=== PATIENT | female | born 1950 | race Caucasian/White ===

== ENCOUNTER 2022-05-04 12:01 | Inpatient (IN) | payer MEDICARE, SELFPAY ==
--- NOTE | ~2022-05-04 | CT_ITS ---
EXAMINATION: CT HEAD WITHOUT CONTRAST CLINICAL INFORMATION: Altered mental status COMPARISON: None. TECHNIQUE: Contiguous axial imaging was performed from the skull base to vertex without intravenous contrast. This CT examination was performed using dose optimization techniques as appropriate, variously including the following: * Automated exposure control * Adjustment of mA and/or kV according to patient size (this includes techniques or standardized protocols for targeted exams where dose is matched to indication/reason for exam; i.e. extremities or head) Use of iterative reconstruction technique DLP: 632 mGy-cm. FINDINGS: There is no evidence of acute intracranial hemorrhage or territorial infarction. No abnormal mass effect or midline shift is seen. Espinoza to white matter differentiation is well preserved. No extra-axial fluid collections are identified. No hydrocephalus. Proportional prominence of the ventricles and sulcal spaces is consistent with mild volume loss. Patchy periventricular and deep white matter hypoattenuation is consistent with mild small vessel ischemic changes. The osseous structures and soft tissues are normal. The mastoid air cells and visualized portions of the paranasal sinuses are well aerated. CT/CT head/brain wo con IMPRESSION: No acute intracranial pathology.
[2022-05-04 12:18] VITALS: BP 146/83; PULSE 80; RESP 18; TEMP 36.2; O2SAT 95; BMI 18.2
--- NOTE | 2022-05-04 12:32 | ED.GENADULT ---
HPI - General Adult General Chief complaint: Psychiatric Symptoms <JENIFER Arellano Last Filed: 05/04/22 16:57> Stated complaint: crisis <JENIFER Arellano Last Filed: 05/04/22 16:57> Time Seen by Provider: 05/04/22 12:32 <JENIFER Arellano Last Filed: 05/04/22 16:57> Source: patient and family <JENIFER Arellano Last Filed: 05/04/22 16:57> Mode of arrival: ambulatory <JENIFER Arellano Last Filed: 05/04/22 16:57> Limitations: no limitations <JENIFER Arellano Last Filed: 05/04/22 16:57> History of Present Illness HPI narrative: Patient is a 71 year old female presenting to the emergency department today with an acute psychotic episode. Patient's family states that the patient arrived out of nowhere from [place] and has been acting very manic. Patient's family states that the patient has a history of these types of issues and has not been compliant on her medication. Patient denies any dizziness, lightheadedness, abdominal pain, nausea, vomiting, fever, chills, blurry vision, double vision, loss of vision, chest pain, difficulty breathing, shortness of breath, back pain, night sweats, pain with urination, increased urinary frequency, increased urinary urgency, blood in her urine or stool, syncope or a near syncopal episode, recent trauma or falls, bowel incontinence, bladder incontinence, bowel retention, bladder retention, or any other complaints at this time. <JENIFER Arellano Last Filed: 05/04/22 16:57> Relieving factors: none <JENIFER Arellano Last Filed: 05/04/22 16:57> Exacerbating factors: none <JENIFER Arellano Last Filed: 05/04/22 16:57> Associated symptoms: denies other symptoms <JENIFER Arellano Last Filed: 05/04/22 16:57> Treatments prior to arrival: none <JENIFER Arellano Last Filed: 05/04/22 16:57> Related Data Home medications: Home Medications Medication Instructions Recorded Confirmed No Known Home Meds 05/05/22 05/05/22 <JENIFER Arellano Last Filed: 05/04/22 16:57> Allergies/adverse reactions: Allergies Allergy/AdvReac Type Severity Reaction Status Date / Time Sulfa (Sulfonamide Allergy Unknown Verified 05/04/22 12:17 Antibiotics) <JENIFER Arellano - Last Filed: 05/04/22 16:57> Review of Systems Constitutional: Constitutional: Reports no additional constitutional complaints, Denies chills, Denies fever(s) and Denies night sweats <JENIFER Arellano Last Filed: 05/04/22 16:57> Eyes: Eyes: Reports no additional eye complaints, Denies blurry vision, Denies change in vision, Denies diplopia, Denies eye discharge, Denies loss of vision and Denies eye pain <JENIFER Arellano Last Filed: 05/04/22 16:57> ENT: Denies dizziness <JENIFER Arellano Last Filed: 05/04/22 16:57> Cardiovascular: Cardiovascular: Reports no additional cardiovascular complaints, Denies chest pain, Denies lightheadedness, Denies Loss of Consciousness and Denies dyspnea <JENIFER Arellano Last Filed: 05/04/22 16:57> Respiratory: Respiratory: Reports no additional respiratory complaints and Denies dyspnea <JENIFER Arellano Last Filed: 05/04/22 16:57> Gastrointestinal: Gastrointestinal: Reports no additional gastrointestinal complaints, Denies abdominal pain, Denies melena, Denies hematochezia, Denies change in bowel habits and Denies change in stool character <JENIFER Arellano Last Filed: 05/04/22 16:57> Genitourinary: Genitourinary: Denies hematuria, Denies urinary frequency, Denies dysuria, Denies urinary incontinence, Denies urinary hesitancy and Denies urinary urgency <JENIFER Arellano Last Filed: 05/04/22 16:57> Musculoskeletal: Musculoskeletal: Reports no additional musculoskeletal complaints, Denies numbness and Denies tingling <JENIFER Arellano Last Filed: 05/04/22 16:57> Neurologic: Reports behavioral changes, Denies dizziness, Denies loss of vision, Denies numbness and Denies tingling <JENIFER Arellano Last Filed: 05/04/22 16:57> Psychiatric: Psychiatric: Reports behavioral changes, Reports difficulty concentrating and Reports mood swings <JENIFER Arellano - Last Filed: 05/04/22 16:57> Endocrine: Endocrine: Reports no additional endocrine complaints <JENIFER Arellano - Last Filed: 05/04/22 16:57> Hematologic/Lymphatic: Hematologic/Lymphatic: Reports no additional hematologic/lymphatic complaints <JENIFER Arellano - Last Filed: 05/04/22 16:57> Allergic/Immunologic: Allergic/Immunologic: Reports no additional allergic/immunologic complaints <JENIFER Arellano - Last Filed: 05/04/22 16:57> PMF Past Medical History Attestation statement: The following information was validated with the patient. <JENIFER Arellano - Last Filed: 05/04/22 16:57> Source: old records reviewed <JENIFER Arellano - Last Filed: 05/04/22 16:57> Social History Social History: Social History Advance Directives: No Advance Directives Information Provided: No <JENIFER Arellano - Last Filed: 05/04/22 16:57> Physical Exam ED Vital Signs: Vital Signs - 24 hr 05/04/22 12:18 05/04/22 21:46 05/05/22 06:10 Temperature 97.2 F 98.4 F 97.5 F Pulse Rate 80 65 91 Respiratory Rate 18 20 16 Blood Pressure 146/83 H 191/80 H 173/108 H Pulse Oximetry 95 95 90 L Oxygen Delivery Method Room Air Room Air Room Air BMI result Body Mass Index 18.2 <JENIFER Arellano - Last Filed: 05/04/22 16:57> Vital Signs - 24 hr 05/04/22 12:18 05/04/22 21:46 05/05/22 06:10 Temperature 97.2 F 98.4 F 97.5 F Pulse Rate 80 65 91 Respiratory Rate 18 20 16 Blood Pressure 146/83 H 191/80 H 173/108 H Pulse Oximetry 95 95 90 L Oxygen Delivery Method Room Air Room Air Room Air BMI result Body Mass Index 18.2 <JENIFER Mart - Last Filed: 05/05/22 11:24> Const General: cooperative, no acute distress, alert and awake <Libia Rios PA - Last Filed: 05/04/22 16:57> Nutritional Appearance: well nourished <Libia Rios PA - Last Filed: 05/04/22 16:57> Orientation/consciousness: patient oriented x3 <Libia Rios PR - Last Filed: 05/04/22 16:57> Limitations: no limitations <Libia Rios PR - Last Filed: 05/04/22 16:57> HENMT Head: Yes normal to inspection and Yes atraumatic <Libia Rios PR - Last Filed: 05/04/22 16:57> Ears: hearing grossly normal bilaterally and external ears normal <Libia Rios PA - Last Filed: 05/04/22 16:57> General nose exam: Normal external nose present, no nasal discharge noted and no epistaxis <Libia Rios PR - Last Filed: 05/04/22 16:57> Face and sinus: Yes normal facial exam, No abrasion and No laceration <Libia Rios PR - Last Filed: 05/04/22 16:57> Mouth: Normal oral and palatal mucosa present, no drooling and no muffled voice <Libia Rios PR - Last Filed: 05/04/22 16:57> Eyes General: appearance normal, both eyes and all related structures <Libia Rios PR - Last Filed: 05/04/22 16:57> Periorbital: periorbital findings normal <Libia Rios PR - Last Filed: 05/04/22 16:57> Eyelids: Yes eyelids normal <Libia Rios PA - Last Filed: 05/04/22 16:57> Conjunctivae: conjunctivae normal <Libia Rios PA - Last Filed: 05/04/22 16:57> Pupils: Equal, round and reactive pupils present <Libia Rios PA - Last Filed: 05/04/22 16:57> EOM: EOMs intact bilaterally <Libia Rios PA - Last Filed: 05/04/22 16:57> Neck Neck: Yes normal visual inspection, Yes full ROM and Yes no lymphadenopathy <Libia Rios PA - Last Filed: 05/04/22 16:57> Chest Chest palpation & inspection: normal inspection of the chest <Libia RiosJENIFER - Last Filed: 05/04/22 16:57> Resp Effort & Inspection: normal respiratory effort and able to speak in complete sentences <Libia Rios PR - Last Filed: 05/04/22 16:57> Auscultation: clear to auscultation bilaterally <Libia Rios PR - Last Filed: 05/04/22 16:57> Cardio Rate: regular rate <Libia Rios PR - Last Filed: 05/04/22 16:57> Rhythm: regular rhythm <Libia RiosJENIFER - Last Filed: 05/04/22 16:57> GI Inspection: Yes normal to inspection <Libia RiosJENIFER - Last Filed: 05/04/22 16:57> Neuro General: patient oriented x3 and moves all extremities <Libia RiosJENIFER - Last Filed: 05/04/22 16:57> Cranial nerves: Yes Equal, round and reactive pupils present <Libia Rios PR - Last Filed: 05/04/22 16:57> Cognition (Neuro): normal cognition <Libia Rios JENIFER - Last Filed: 05/04/22 16:57> Motor exam (neuro): 5/5 motor strength present throughout <Libia Rios PR - Last Filed: 05/04/22 16:57> Sensory Exam: Normal double simultaneous stimulation for sensation <Libia RiosJENIFER - Last Filed: 05/04/22 16:57> Coordination: [id number] test normal <Libia Rios PR - Last Filed: 05/04/22 16:57> Extrem General: Yes normal to inspection, Yes full ROM and Yes capillary refill normal <Libia RiosJENIFER - Last Filed: 05/04/22 16:57> Psych Appearance: grossly normal <Libia RiosJENIFER - Last Filed: 05/04/22 16:57> Mental Status: mental status grossly normal <Libia RiosJENIFER - Last Filed: 05/04/22 16:57> Speech and movement: Pressured speech present <Libia RiosJENIFER - Last Filed: 05/04/22 16:57> Affect: normal affect <JENIFER Arellano Last Filed: 05/04/22 16:57> Attitude: cooperative <JENIFER Arellano - Last Filed: 05/04/22 16:57> Thought process: Confabulating thought process present <JENIFER Arellano Last Filed: 05/04/22 16:57> Thought content: Normal thought content present <JENIFER Arellano Last Filed: 05/04/22 16:57> Insight: Good insight present (Psych) <JENIFER Arellano - Last Filed: 05/04/22 16:57> Course Reevaluation(s) Reevaluation #1: Physician observation continues, patient is manic and from [place]. Unclear what medications patient is actually on. On my exam, patient is sleeping, she has had stable vitals, respirations even and regular, no apparent distress. Will continue to monitor. <JENIFER Mart - Last Filed: 05/05/22 11:24> Time: 11:23 <JENIFER Mart - Last Filed: 05/05/22 11:24> Medical Decision Making MDM Narrative Medical decision making narrative: Patient is a 71 year old female presenting to the emergency department today in an acute manic episode. Patient's physical exam was consistent with a person in melissa. Patient's blood work showed hyponatremia but was otherwise unremarkable. Patient's urine showed no acute process. I explained my physical exam findings as well as all test results to the patient. I answered all questions asked by the patient. Patient is awaiting N/Crisis evaluation. <JENIFER Arellano Last Filed: 05/04/22 16:57> Differential Diagnosis Differential Diagnosis: Melissa, psychosis <JENIFER Arellano Last Filed: 05/04/22 16:57> Medical Records Medical records reviewed: Yes I reviewed the patient's medical records. <JENIFER Arellano Last Filed: 05/04/22 16:57> Lab Data Lab results reviewed: Yes I reviewed the patient's lab results. <JENIFER Arellano Last Filed: 05/04/22 16:57> Result diagrams: : 05/04/22 13:34 05/04/22 22:02 <JENIFER Arellano Last Filed: 05/04/22 16:57> Labs: Lab Results 05/04/22 05/04/22 05/04/22 Range/Units 13:03 13:07 13:07 WBC (4.8-10.8) X10*3/uL RBC (4.20-5.50) X10*6/uL Hgb (12.0-16.0) g/dl Hct (37.0-47.0) % MCV (80.0-98.0) fL MCH (27.0-33.0) pg MCHC (31.0-35.0) g/dl RDW (11.0-16.0) % Plt Count (160-400) X10*3/uL MPV (9.4-12.3) fL Immature Gran % (Auto) (0.0-0.4) % Neut % (Auto) (45-73) % Lymph % (Auto) (20-40) % [place] % (Auto) (2-11) % Eos % (Auto) (0-4) % Baso % (Auto) (0-2) % Lymph # (Auto) (1.2-4.9) X10*3/uL [place] # (Auto) (0.1-1.2) X10*3/uL Eos # (Auto) (0.0-0.4) X10*3/uL Baso # (Auto) (0.0-0.2) X10*3/uL Abs Immat Gran (auto) (0.00-0.03) X10*3/uL Absolute Neuts (auto) (2.0-8.3) x10*3/uL Absolute Nucleated RBC (0.0-0.012) X10*3/uL Nucleated RBC % (auto) (0.0-0.2) /100WBC Sodium (135-145) mmol/L Potassium (3.3-5.1) mmol/L Chloride (96-108) mmol/L Carbon Dioxide (22-29) mmol/L Anion Gap (12-20) BUN (9-16) mg/dL Creatinine (0.5-1.4) mg/dL Estim Creat Clear Calc Estimated GFR Random Glucose (60-115) mg/dL Calcium (8.4-10.2) mg/dL Total Bilirubin (0.0-1.0) mg/dL AST (5-31) U/L ALT (0-31) U/L Alkaline Phosphatase (39-117) U/L Total Protein (6.5-8.0) g/dL Albumin (3.5-5.0) g/dL Urine Color YELLOW Urine Appearance CLEAR Urine pH 5.5 (5.0-8.0) Ur Specific [place] 1.015 (1.005-1.025) Urine Protein NEG (NEG-TRACE) MG/DL Urine Glucose (UA) NEG (NEG) MG/DL Urine Ketones NEG (NEG) MG/DL Urine Blood NEG (NEG) Urine Nitrite NEG (NEG) Ur Leukocyte Esterase NEG (NEG) Urine Opiates Screen Not Detected (Not Detect) Urine Fentanyl Screen Not Detected (Not Detect) Ur Barbiturates Screen Not Detected (Not Detect) Ur Phencyclidine Scrn Not Detected (Not Detect) Ur Amphetamines Screen Not Detected (Not Detect) U Benzodiazepines Scrn Not Detected (Not Detect) Urine Cocaine Screen Not Detected (Not Detect) U Marijuana (THC) Screen Not Detected (Not Detect) Ethyl Alcohol mg/dL COVID-19 (RADHA) Negative (Negative) COVID-19 Clin Com See Note 05/04/22 05/04/22 05/04/22 Range/Units 13:33 13:34 22:02 WBC 5.0 (4.8-10.8) X10*3/uL RBC 4.56 (4.20-5.50) X10*6/uL Hgb 13.8 (12.0-16.0) g/dl Hct 41.4 (37.0-47.0) % MCV 90.8 (80.0-98.0) fL MCH 30.3 (27.0-33.0) pg MCHC 33.3 (31.0-35.0) g/dl RDW 14.5 (11.0-16.0) % Plt Count 210 (160-400) X10*3/uL MPV 9.1 L (9.4-12.3) fL Immature Gran % (Auto) 0.2 (0.0-0.4) % Neut % (Auto) 54.7 (45-73) % Lymph % (Auto) 29.8 (20-40) % [place] % (Auto) 11.3 H (2-11) % Eos % (Auto) 2.8 (0-4) % Baso % (Auto) 1.2 (0-2) % Lymph # (Auto) 1.5 (1.2-4.9) X10*3/uL [place] # (Auto) 0.6 (0.1-1.2) X10*3/uL Eos # (Auto) 0.1 (0.0-0.4) X10*3/uL Baso # (Auto) 0.1 (0.0-0.2) X10*3/uL Abs Immat Gran (auto) 0.01 (0.00-0.03) X10*3/uL Absolute Neuts (auto) 2.7 (2.0-8.3) x10*3/uL Absolute Nucleated RBC 0.000 (0.0-0.012) X10*3/uL Nucleated RBC % (auto) 0.0 (0.0-0.2) /100WBC Sodium 126 L 130 L (135-145) mmol/L Potassium 4.1 4.6 (3.3-5.1) mmol/L Chloride 95 L 100 (96-108) mmol/L Carbon Dioxide 27 25 (22-29) mmol/L Anion Gap 8 L 10 L (12-20) BUN 8 L 11 (9-16) mg/dL Creatinine 0.75 1.15 (0.5-1.4) mg/dL Estim Creat Clear Calc 65.1 39.6 Estimated GFR > 60 47 Random Glucose 92 87 (60-115) mg/dL Calcium 8.6 8.4 (8.4-10.2) mg/dL Total Bilirubin 0.3 (0.0-1.0) mg/dL AST 18 (5-31) U/L ALT 9 (0-31) U/L Alkaline Phosphatase 97 (39-117) U/L Total Protein 9.0 H (6.5-8.0) g/dL Albumin 2.9 L (3.5-5.0) g/dL Urine Color Urine Appearance Urine pH (5.0-8.0) Ur Specific [place] (1.005-1.025) Urine Protein (NEG-TRACE) MG/DL Urine Glucose (UA) (NEG) MG/DL Urine Ketones (NEG) MG/DL Urine Blood (NEG) Urine Nitrite (NEG) Ur Leukocyte Esterase (NEG) Urine Opiates Screen (Not Detect) Urine Fentanyl Screen (Not Detect) Ur Barbiturates Screen (Not Detect) Ur Phencyclidine Scrn (Not Detect) Ur Amphetamines Screen (Not Detect) U Benzodiazepines Scrn (Not Detect) Urine Cocaine Screen (Not Detect) U Marijuana (THC) Screen (Not Detect) Ethyl Alcohol mg/dL COVID-19 (RADHA) (Negative) COVID-19 Clin Com 05/04/22 Range/Units 22:02 WBC (4.8-10.8) X10*3/uL RBC (4.20-5.50) X10*6/uL Hgb (12.0-16.0) g/dl Hct (37.0-47.0) % MCV (80.0-98.0) fL MCH (27.0-33.0) pg MCHC (31.0-35.0) g/dl RDW (11.0-16.0) % Plt Count (160-400) X10*3/uL MPV (9.4-12.3) fL Immature Gran % (Auto) (0.0-0.4) % Neut % (Auto) (45-73) % Lymph % (Auto) (20-40) % [place] % (Auto) (2-11) % Eos % (Auto) (0-4) % Baso % (Auto) (0-2) % Lymph # (Auto) (1.2-4.9) X10*3/uL [place] # (Auto) (0.1-1.2) X10*3/uL Eos # (Auto) (0.0-0.4) X10*3/uL Baso # (Auto) (0.0-0.2) X10*3/uL Abs Immat Gran (auto) (0.00-0.03) X10*3/uL Absolute Neuts (auto) (2.0-8.3) x10*3/uL Absolute Nucleated RBC (0.0-0.012) X10*3/uL Nucleated RBC % (auto) (0.0-0.2) /100WBC Sodium (135-145) mmol/L Potassium (3.3-5.1) mmol/L Chloride (96-108) mmol/L Carbon Dioxide (22-29) mmol/L Anion Gap (12-20) BUN (9-16) mg/dL Creatinine (0.5-1.4) mg/dL Estim Creat Clear Calc Estimated GFR Random Glucose (60-115) mg/dL Calcium (8.4-10.2) mg/dL Total Bilirubin (0.0-1.0) mg/dL AST (5-31) U/L ALT (0-31) U/L Alkaline Phosphatase (39-117) U/L Total Protein (6.5-8.0) g/dL Albumin (3.5-5.0) g/dL Urine Color Urine Appearance Urine pH (5.0-8.0) Ur Specific [place] (1.005-1.025) Urine Protein (NEG-TRACE) MG/DL Urine Glucose (UA) (NEG) MG/DL Urine Ketones (NEG) MG/DL Urine Blood (NEG) Urine Nitrite (NEG) Ur Leukocyte Esterase (NEG) Urine Opiates Screen (Not Detect) Urine Fentanyl Screen (Not Detect) Ur Barbiturates Screen (Not Detect) Ur Phencyclidine Scrn (Not Detect) Ur Amphetamines Screen (Not Detect) U Benzodiazepines Scrn (Not Detect) Urine Cocaine Screen (Not Detect) U Marijuana (THC) Screen (Not Detect) Ethyl Alcohol < 10 mg/dL COVID-19 (RADHA) (Negative) COVID-19 Clin Com <JENIFER Arellano - Last Filed: 05/04/22 16:57> Lab Results 05/04/22 05/04/22 05/04/22 Range/Units 13:03 13:07 13:07 WBC (4.8-10.8) X10*3/uL RBC (4.20-5.50) X10*6/uL Hgb (12.0-16.0) g/dl Hct (37.0-47.0) % MCV (80.0-98.0) fL MCH (27.0-33.0) pg MCHC (31.0-35.0) g/dl RDW (11.0-16.0) % Plt Count (160-400) X10*3/uL MPV (9.4-12.3) fL Immature Gran % (Auto) (0.0-0.4) % Neut % (Auto) (45-73) % Lymph % (Auto) (20-40) % [place] % (Auto) (2-11) % Eos % (Auto) (0-4) % Baso % (Auto) (0-2) % Lymph # (Auto) (1.2-4.9) X10*3/uL [place] # (Auto) (0.1-1.2) X10*3/uL Eos # (Auto) (0.0-0.4) X10*3/uL Baso # (Auto) (0.0-0.2) X10*3/uL Abs Immat Gran (auto) (0.00-0.03) X10*3/uL Absolute Neuts (auto) (2.0-8.3) x10*3/uL Absolute Nucleated RBC (0.0-0.012) X10*3/uL Nucleated RBC % (auto) (0.0-0.2) /100WBC Sodium (135-145) mmol/L Potassium (3.3-5.1) mmol/L Chloride (96-108) mmol/L Carbon Dioxide (22-29) mmol/L Anion Gap (12-20) BUN (9-16) mg/dL Creatinine (0.5-1.4) mg/dL Estim Creat Clear Calc Estimated GFR Random Glucose (60-115) mg/dL Calcium (8.4-10.2) mg/dL Total Bilirubin (0.0-1.0) mg/dL AST (5-31) U/L ALT (0-31) U/L Alkaline Phosphatase (39-117) U/L Total Protein (6.5-8.0) g/dL Albumin (3.5-5.0) g/dL Urine Color YELLOW Urine Appearance CLEAR Urine pH 5.5 (5.0-8.0) Ur Specific [place] 1.015 (1.005-1.025) Urine Protein NEG (NEG-TRACE) MG/DL Urine Glucose (UA) NEG (NEG) MG/DL Urine Ketones NEG (NEG) MG/DL Urine Blood NEG (NEG) Urine Nitrite NEG (NEG) Ur Leukocyte Esterase NEG (NEG) Urine Opiates Screen Not Detected (Not Detect) Urine Fentanyl Screen Not Detected (Not Detect) Ur Barbiturates Screen Not Detected (Not Detect) Ur Phencyclidine Scrn Not Detected (Not Detect) Ur Amphetamines Screen Not Detected (Not Detect) U Benzodiazepines Scrn Not Detected (Not Detect) Urine Cocaine Screen Not Detected (Not Detect) U Marijuana (THC) Screen Not Detected (Not Detect) Ethyl Alcohol mg/dL COVID-19 (RADHA) Negative (Negative) COVID-19 Clin Com See Note 05/04/22 05/04/22 05/04/22 Range/Units 13:33 13:34 22:02 WBC 5.0 (4.8-10.8) X10*3/uL RBC 4.56 (4.20-5.50) X10*6/uL Hgb 13.8 (12.0-16.0) g/dl Hct 41.4 (37.0-47.0) % MCV 90.8 (80.0-98.0) fL MCH 30.3 (27.0-33.0) pg MCHC 33.3 (31.0-35.0) g/dl RDW 14.5 (11.0-16.0) % Plt Count 210 (160-400) X10*3/uL MPV 9.1 L (9.4-12.3) fL Immature Gran % (Auto) 0.2 (0.0-0.4) % Neut % (Auto) 54.7 (45-73) % Lymph % (Auto) 29.8 (20-40) % [place] % (Auto) 11.3 H (2-11) % Eos % (Auto) 2.8 (0-4) % Baso % (Auto) 1.2 (0-2) % Lymph # (Auto) 1.5 (1.2-4.9) X10*3/uL [place] # (Auto) 0.6 (0.1-1.2) X10*3/uL Eos # (Auto) 0.1 (0.0-0.4) X10*3/uL Baso # (Auto) 0.1 (0.0-0.2) X10*3/uL Abs Immat Gran (auto) 0.01 (0.00-0.03) X10*3/uL Absolute Neuts (auto) 2.7 (2.0-8.3) x10*3/uL Absolute Nucleated RBC 0.000 (0.0-0.012) X10*3/uL Nucleated RBC % (auto) 0.0 (0.0-0.2) /100WBC Sodium 126 L 130 L (135-145) mmol/L Potassium 4.1 4.6 (3.3-5.1) mmol/L Chloride 95 L 100 (96-108) mmol/L Carbon Dioxide 27 25 (22-29) mmol/L Anion Gap 8 L 10 L (12-20) BUN 8 L 11 (9-16) mg/dL Creatinine 0.75 1.15 (0.5-1.4) mg/dL Estim Creat Clear Calc 65.1 39.6 Estimated GFR > 60 47 Random Glucose 92 87 (60-115) mg/dL Calcium 8.6 8.4 (8.4-10.2) mg/dL Total Bilirubin 0.3 (0.0-1.0) mg/dL AST 18 (5-31) U/L ALT 9 (0-31) U/L Alkaline Phosphatase 97 (39-117) U/L Total Protein 9.0 H (6.5-8.0) g/dL Albumin 2.9 L (3.5-5.0) g/dL Urine Color Urine Appearance Urine pH (5.0-8.0) Ur Specific [place] (1.005-1.025) Urine Protein (NEG-TRACE) MG/DL Urine Glucose (UA) (NEG) MG/DL Urine Ketones (NEG) MG/DL Urine Blood (NEG) Urine Nitrite (NEG) Ur Leukocyte Esterase (NEG) Urine Opiates Screen (Not Detect) Urine Fentanyl Screen (Not Detect) Ur Barbiturates Screen (Not Detect) Ur Phencyclidine Scrn (Not Detect) Ur Amphetamines Screen (Not Detect) U Benzodiazepines Scrn (Not Detect) Urine Cocaine Screen (Not Detect) U Marijuana (THC) Screen (Not Detect) Ethyl Alcohol mg/dL COVID-19 (RADHA) (Negative) COVID-19 Clin Com 05/04/22 Range/Units 22:02 WBC (4.8-10.8) X10*3/uL RBC (4.20-5.50) X10*6/uL Hgb (12.0-16.0) g/dl Hct (37.0-47.0) % MCV (80.0-98.0) fL MCH (27.0-33.0) pg MCHC (31.0-35.0) g/dl RDW (11.0-16.0) % Plt Count (160-400) X10*3/uL MPV (9.4-12.3) fL Immature Gran % (Auto) (0.0-0.4) % Neut % (Auto) (45-73) % Lymph % (Auto) (20-40) % [place] % (Auto) (2-11) % Eos % (Auto) (0-4) % Baso % (Auto) (0-2) % Lymph # (Auto) (1.2-4.9) X10*3/uL [place] # (Auto) (0.1-1.2) X10*3/uL Eos # (Auto) (0.0-0.4) X10*3/uL Baso # (Auto) (0.0-0.2) X10*3/uL Abs Immat Gran (auto) (0.00-0.03) X10*3/uL Absolute Neuts (auto) (2.0-8.3) x10*3/uL Absolute Nucleated RBC (0.0-0.012) X10*3/uL Nucleated RBC % (auto) (0.0-0.2) /100WBC Sodium (135-145) mmol/L Potassium (3.3-5.1) mmol/L Chloride (96-108) mmol/L Carbon Dioxide (22-29) mmol/L Anion Gap (12-20) BUN (9-16) mg/dL Creatinine (0.5-1.4) mg/dL Estim Creat Clear Calc Estimated GFR Random Glucose (60-115) mg/dL Calcium (8.4-10.2) mg/dL Total Bilirubin (0.0-1.0) mg/dL AST (5-31) U/L ALT (0-31) U/L Alkaline Phosphatase (39-117) U/L Total Protein (6.5-8.0) g/dL Albumin (3.5-5.0) g/dL Urine Color Urine Appearance Urine pH (5.0-8.0) Ur Specific [place] (1.005-1.025) Urine Protein (NEG-TRACE) MG/DL Urine Glucose (UA) (NEG) MG/DL Urine Ketones (NEG) MG/DL Urine Blood (NEG) Urine Nitrite (NEG) Ur Leukocyte Esterase (NEG) Urine Opiates Screen (Not Detect) Urine Fentanyl Screen (Not Detect) Ur Barbiturates Screen (Not Detect) Ur Phencyclidine Scrn (Not Detect) Ur Amphetamines Screen (Not Detect) U Benzodiazepines Scrn (Not Detect) Urine Cocaine Screen (Not Detect) U Marijuana (THC) Screen (Not Detect) Ethyl Alcohol < 10 mg/dL COVID-19 ([facility]) (Negative) COVID-19 Clin Com <JENIFER Mart - Last Filed: 05/05/22 11:24> Discharge Plan Discharge Clinical Impression: Psychosis, Melissa <JENIFER Arellano - Last Filed: 05/04/22 16:57> Patient Disposition: Still a Patient <JENIFER Arellano - Last Filed: 05/04/22 16:57> Prescriptions: No Action No Known Home Meds <JENIFER Arellano - Last Filed: 05/04/22 16:57> Print Language: Persian <JENIFER Arellano - Last Filed: 05/04/22 16:57>
[2022-05-04 13:38] LABS: MANUAL DIFF FLAG NO
--- NOTE | 2022-05-04 13:39 | PC.NURSE ---
brought in by family and they are concerned as pt showed up unexpectedly from [place], erratic behavior, not med compliant, agitated at times, see attached note in chart written by family, niece jackelingaviota chaney [phone] would like a call from clinician doing her eval
[2022-05-04 13:41] LABS: Basophils Absolute Auto 0.1 X10*3/uL (0.0-0.2); Basophils Percent Auto 1.2 % (0-2); Eosinophils Absolute Auto 0.1 X10*3/uL (0.0-0.4); Eosinophils Percent Auto 2.8 % (0-4); Hematocrit 41.4 % (37.0-47.0); Hemoglobin 13.8 g/dl (12.0-16.0); Imm Gran Abs Auto 0.01 X10*3/uL (0.00-0.03); Imm Gran Pct Auto 0.2 % (0.0-0.4); Lymphocytes Absolute Auto 1.5 X10*3/uL (1.2-4.9); Lymphocytes Percent Auto 29.8 % (20-40); Mean Corpuscular HGB Conc 33.3 g/dl (31.0-35.0); Mean Corpuscular Hemoglobin 30.3 pg (27.0-33.0); Mean Corpuscular Volume 90.8 fL (80.0-98.0); Mean Platelet Volume 9.1 fL (9.4-12.3); Monocytes Absolute Auto 0.6 X10*3/uL (0.1-1.2); Monocytes Percent Auto 11.3 % (2-11); Neutrophils Absolute Auto 2.7 x10*3/uL (2.0-8.3); Neutrophils Percent Auto 54.7 % (45-73); Platelet Count 210 X10*3/uL (160-400); Red Blood Count 4.56 X10*6/uL (4.20-5.50); Red Cell Distribution Width 14.5 % (11.0-16.0)
[2022-05-04 13:42] LABS: Appearance Urine CLEAR; Color Urine YELLOW; Glucose Urine UA NEG (NEG); Leukocyte Esterase Urine NEG (NEG); Nitrite Urine NEG (NEG); PH 5.5 (5.0-8.0); Specific Gravity - Urine 1.015 (1.005-1.025); Urine Blood NEG (NEG); Urine Ketones NEG (NEG); Urine Protein NEG (NEG-TRACE)
[2022-05-04 13:57] LABS: Amphetamine Screen Urine Not Detected (Not Detect); Barbiturates, Urine Not Detected (Not Detect); Benzodiazepines Screen Urine Not Detected (Not Detect); Cannabinoid Screen Urine Not Detected (Not Detect); Cocaine Screen Urine Not Detected (Not Detect); Fentanyl, urine Not Detected (Not Detect); Opiate Screen Urine Not Detected (Not Detect); Phencyclidine Screen Urine Not Detected (Not Detect)
[2022-05-04 14:04] LABS: COVID-19 Test Negative (Negative)
[2022-05-04 14:04] LABS: Alanine Aminotransferase 9 U/L (0-31); Albumin Level 2.9 g/dL (3.5-5.0); Alkaline Phosphatase 97 U/L (39-117); Anion Gap 8 (12-20); Aspartate Amino Transferase 18 U/L (5-31); Bilirubin Total 0.3 mg/dL (0.0-1.0); Blood Urea Nitrogen 8 mg/dL (9-16); Calcium 8.6 mg/dL (8.4-10.2); Carbon Dioxide 27 mmol/L (22-29); Chloride 95 mmol/L (96-108); Creatinine Clr Calc Pharmacy 65.1; Estimated Glomerular Filt Rate > 60; Glucose Random 92 mg/dL (60-115); Potassium 4.1 mmol/L (3.3-5.1); Sodium 126 mmol/L (135-145)
[2022-05-04] MEDS: Albuterol Sulfate 90 MCG 8 GM INHALER 2 PUFF INHALE ×2 (14:22→21:35)
--- NOTE | 2022-05-04 14:38 | PC.NURSE ---
c/o wheezing. slighlty coarse exp wheeze w good air movement, albuterol inhaler given w reported relief, laying in bed, nad, cooperative, awaiting n eval
--- NOTE | 2022-05-04 14:40 | PC.NURSE ---
pt now states that her birthday is 1950 but said it was 06/16/1955 previously, registration changed it
--- NOTE | 2022-05-04 17:42 | PC.NURSE ---
Please a 20 gauge Iv to the right hand. Reported to CLEO Shell
[2022-05-04] MEDS: NaPROXEN 500 MG TABLET PO (19:21)
[2022-05-04] MEDS: 0.9 % Sodium Chloride 1,000 ML 999 ML IVCONT (19:22)
--- NOTE | 2022-05-04 19:28 | PC.NURSE ---
medicated per provider order, c/o generalized arthritis pain.
[2022-05-04 21:46] VITALS: BP 191/80; PULSE 65; RESP 20; TEMP 36.9; O2SAT 95
[2022-05-04 22:20] LABS: Anion Gap 10 (12-20); Blood Urea Nitrogen 11 mg/dL (9-16); Calcium 8.4 mg/dL (8.4-10.2); Carbon Dioxide 25 mmol/L (22-29); Chloride 100 mmol/L (96-108); Creatinine Clr Calc Pharmacy 39.6; Estimated Glomerular Filt Rate 47; Ethanol < 10 mg/dL; Glucose Random 87 mg/dL (60-115); Potassium 4.6 mmol/L (3.3-5.1); Sodium 130 mmol/L (135-145)
[2022-05-04] MEDS: LORazepam 1 MG TABLET PO (22:24)
--- NOTE | 2022-05-05 | ECG_ITS ---
Test Reason : medical clearance Blood Pressure : / mmHG Vent. Rate : 074 BPM Atrial Rate : 074 BPM P-R Int : 152 ms QRS Dur : 096 ms QT Int : 408 ms P-R-T Axes : 071 -40 057 degrees QTc Int : 452 ms Normal sinus rhythm Left axis deviation Minimal voltage criteria for LVH, may be normal variant ( Cuney product ) Abnormal ECG No previous ECGs available Referred By: Mami Peterson Electronically Signed By:NEISHA GALLO MD
[2022-05-05 06:10] VITALS: BP 173/108; PULSE 91; RESP 16; TEMP 36.4; O2SAT 90
--- NOTE | 2022-05-05 07:01 | PC.NURSE ---
Patient slept through the night, no distress observed/reported, behavior non concerning, Ativan 1 mg administered with good effect, [facility] referral completed/confirmed/pending ETA, patient is currently not on any maintenance medication, will continue to monitor
--- NOTE | 2022-05-05 10:07 | PC.NURSE ---
PT SLEEPING. BEDSEARCH CONTINUES.
--- NOTE | 2022-05-05 11:31 | PC.NURSE ---
NIECE IN TO SEE PT
--- NOTE | 2022-05-05 16:35 | PC.NURSE ---
RN-RN report given to M5.
--- NOTE | 2022-05-05 19:06 | PC.NURSE ---
Gigi King (brother): spoke to w pt permission, updated on pt current status, plan to transfer to .
[2022-05-05 19:30] VITALS: BP 185/79; PULSE 90; TEMP 35.9
--- NOTE | 2022-05-05 20:43 | HO.PSYADMNOT ---
HPI Date of Service: 05/05/22 Chief Complaint: psychosis Sources of Information: patient interviewed, chart reviewed and crisis/core team assessment reviewed HPI Subjective Notes: Hassan Warning and Conditional Voluntary Healthcare Proxy: No Guardianship: No Medical Problems Affecting Mental Status: No Narrative: Mirlande is a 71 y.o. female who carries a dx of Bipolar I disorder. She presented to [facility] on 05/04/22 due to family bringing her in for concern of manic episode. Pt's family reports that she arrived unannounced on 05/03/22 from [place] and has been ?acting very manic.? There is a question of med-adherence. Per [facility] crisis eval, pt reported she is in the hospital because her family is against her and endorsed paranoid ideation of being followed due to hiding a special victim in her house. [facility] clinician spoke with pt?s niece who reported that pt arrived to her home unannounced, appeared to have lost a significant amt of weight, disheveled, and disorganized. Recent psychiatric inpatient admission in 10/2021, however family report she did not follow up with OP referrals and is med non-adherent. Pt resides in [place] with her son and pt?s niece spoke with her son, who reported that she is ?spending long hours just yelling,? recently disappeared and was found laying in a ditch.? In the ED, pt?s utox negative for illicit substances, no alcohol abuse. Na level low, 126 but improved to 130 with fluids. U/A negative.? I evaluated the pt this evening and upon interview she reports she is in the hospital because her ?family is very concerned.? Pt says she came in by plane from [place] and ?nobody got any of my texts.? She acknowledges that ?nobody knew I was coming? and says she ?shocked everyone, they werent expecting me.? Pt says her family was concerned about her because ?im too skinny? and ?I have a psychiatric history and chinmay been suffering with depression since age 17.? Pt reports she is on Risperdal 1 mg and claims she has been adherent with it but ?taking it at different times.? When discussing her crisis eval reporting that she has been non-adherent with her medication and manic, pt states ?that?s just bullshit? and says her ?brother in [place] interpreted my chart to say I do not take my meds which is wrong.? Says she has been taking risperdal 20 years. Pt reports her family thinks she is manic because ?they upset me, I got mad.? Says she was mad at her niece?s house because ?nothing is done with respect? and it was ?dimly lit.? Pt says she has not been sleeping since arriving from [place] and attributes this to the time difference and travel. Says when she arrived at [facility], she thought she was accompanying her niece at her cardiac rehab appt and did not know she would be psychiatrically evaluated. Denies SI/SIB. Denies A/VH. Says she feels safe here. Denies substance use or alcohol use, last drink was at [place]. Denies issues with appetite but says she has not been eating or hydrating much since arriving from [place].? Past Psychiatric History: -Per crisis eval, pt has a hx of multiple psych admissions. Hx of lack of follow up with services and med non-adherence. -Pt says she has OP med management in [place], sees a human resources psychologist, no therapy. Medical Evaluation Reviewed: Yes [facility] Narrative: -Self reports Sjogren?s syndrome Social History: -Pt lives in [place] with her son and a ? couple.? 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 -Pt grew up in a family Diagnostics Vital Signs (24Hr): Vital Signs - 24 hr 05/04/22 21:46 05/05/22 06:10 Temperature 98.4 F 97.5 F Pulse Rate 65 91 Respiratory Rate 20 16 Blood Pressure 191/80 H 173/108 H Pulse Oximetry 95 90 L Oxygen Delivery Method Room Air Room Air BMI result Body Mass Index 18.2 Labs Results: 05/04/22 13:34 05/04/22 22:02 Labs: Laboratory Results - last 48 hr 05/04/22 05/04/22 05/04/22 13:03 13:07 13:07 WBC RBC Hgb Hct MCV MCH MCHC RDW Plt Count MPV Immature Gran % (Auto) Neut % (Auto) Lymph % (Auto) Foster % (Auto) Eos % (Auto) Baso % (Auto) Lymph # (Auto) Foster # (Auto) Eos # (Auto) Baso # (Auto) Abs Immat Gran (auto) Absolute Neuts (auto) Absolute Nucleated RBC Nucleated RBC % (auto) Sodium Potassium Chloride Carbon Dioxide Anion Gap BUN Creatinine Estim Creat Clear Calc Estimated GFR Random Glucose Calcium Total Bilirubin AST ALT Alkaline Phosphatase Total Protein Albumin Urine Color YELLOW Urine Appearance CLEAR Urine pH 5.5 Ur Specific Camargo 1.015 Urine Protein NEG Urine Glucose (UA) NEG Urine Ketones NEG Urine Blood NEG Urine Nitrite NEG Ur Leukocyte Esterase NEG Urine Opiates Screen Not Detected Urine Fentanyl Screen Not Detected Ur Barbiturates Screen Not Detected Ur Phencyclidine Scrn Not Detected Ur Amphetamines Screen Not Detected U Benzodiazepines Scrn Not Detected Urine Cocaine Screen Not Detected U Marijuana (THC) Screen Not Detected Ethyl Alcohol COVID-19 (RADHA) Negative COVID-19 Clin Com See Note 05/04/22 05/04/22 05/04/22 13:33 13:34 22:02 WBC 5.0 RBC 4.56 Hgb 13.8 Hct 41.4 MCV 90.8 MCH 30.3 MCHC 33.3 RDW 14.5 Plt Count 210 MPV 9.1 L Immature Gran % (Auto) 0.2 Neut % (Auto) 54.7 Lymph % (Auto) 29.8 Foster % (Auto) 11.3 H Eos % (Auto) 2.8 Baso % (Auto) 1.2 Lymph # (Auto) 1.5 Foster # (Auto) 0.6 Eos # (Auto) 0.1 Baso # (Auto) 0.1 Abs Immat Gran (auto) 0.01 Absolute Neuts (auto) 2.7 Absolute Nucleated RBC 0.000 Nucleated RBC % (auto) 0.0 Sodium 126 L 130 L Potassium 4.1 4.6 Chloride 95 L 100 Carbon Dioxide 27 25 Anion Gap 8 L 10 L BUN 8 L 11 Creatinine 0.75 1.15 Estim Creat Clear Calc 65.1 39.6 Estimated GFR > 60 47 Random Glucose 92 87 Calcium 8.6 8.4 Total Bilirubin 0.3 AST 18 ALT 9 Alkaline Phosphatase 97 Total Protein 9.0 H Albumin 2.9 L Urine Color Urine Appearance Urine pH Ur Specific Camargo Urine Protein Urine Glucose (UA) Urine Ketones Urine Blood Urine Nitrite Ur Leukocyte Esterase Urine Opiates Screen Urine Fentanyl Screen Ur Barbiturates Screen Ur Phencyclidine Scrn Ur Amphetamines Screen U Benzodiazepines Scrn Urine Cocaine Screen U Marijuana (THC) Screen Ethyl Alcohol COVID-19 (RADHA) COVID-19 Easy [employer] Com 05/04/22 22:02 WBC RBC Hgb Hct MCV MCH MCHC RDW Plt Count MPV Immature Gran % (Auto) Neut % (Auto) Lymph % (Auto) Foster % (Auto) Eos % (Auto) Baso % (Auto) Lymph # (Auto) Foster # (Auto) Eos # (Auto) Baso # (Auto) Abs Immat Gran (auto) Absolute Neuts (auto) Absolute Nucleated RBC Nucleated RBC % (auto) Sodium Potassium Chloride Carbon Dioxide Anion Gap BUN Creatinine Estim Creat Clear Calc Estimated GFR Random Glucose Calcium Total Bilirubin AST ALT Alkaline Phosphatase Total Protein Albumin Urine Color Urine Appearance Urine pH Ur Specific [place] Urine Protein Urine Glucose (UA) Urine Ketones Urine Blood Urine Nitrite Ur Leukocyte Esterase Urine Opiates Screen Urine Fentanyl Screen Ur Barbiturates Screen Ur Phencyclidine Scrn Ur Amphetamines Screen U Benzodiazepines Scrn Urine Cocaine Screen U Marijuana (THC) Screen Ethyl Alcohol < 10 COVID-19 (RADHA) COVID-19 Clin Com Meds/Allergies Meds Home Medications Medication Instructions Recorded Confirmed Type No Known Home Meds 05/05/22 05/05/22 History Allergies Allergies Allergy/AdvReac Type Severity Reaction Status Date / Time Sulfa (Sulfonamide Allergy Unknown Verified 05/04/22 12:17 Antibiotics) Mental Status Exam Mental Status Exam Narrative: A but not oriented to situation, minimizing sx. Good eye contact, attentive. No Tics or Tremors. No abnormal involuntary movements. At times agitated, but overall cooperative, engaged. Non-pressured speech, spontaneous with regular rate and rhythm, normal volume (at times raises voice, angry when talking about family) and prosody. No prolonged speech latency or dysarthria. Mood is ?angry,? affect is labile. Denies SI/SIB/HI upon inquiry. Denies A/VH. Endorses paranoid delusional thought content. Thoughts are distracted, irrational at times. No known cognitive or memory impairment. Insight/ Judgment limited. Assessment & Plan Assessment & Plan (1) Bipolar 1 disorder: Status: Acute Code(s): F31.9 - Bipolar disorder, unspecified Plan Mirlande is a 71 y.o. female who carries a dx of Bipolar I disorder. She presented to [facility] on 05/04/22 due to family bringing her in for concern of manic episode. Pt's family reports that she arrived unannounced on 05/03/22 from [place] and has been ?acting very manic.? There is a question of med-adherence. Per [facility] crisis eval, pt reported she is in the hospital because her family is against her and endorsed paranoid ideation of being followed due to hiding a special victim in her house. Hx of multiple previous psych admissions. Limited hx as pt is not from this area. Plan: Pt is a smoker but declines nicotine replacement therapy. Says she has been adherent with risperdal, however may not be reliable historian. Will continue risperdal 1 mg QHS and evaluate for response. Will start clonidine 0.1 mg TID PRN for hyperarousal, as pt has elevated BP and is anxious.? Q15 min safety checks, CV Monitor response to medications. Monitor for safety in the milieu. Discharge on stabilization. Patient seen. Chart reviewed. Discussed with team. Obtain collateral contact info?as needed Patient educated on: medication risk/benefits and therapeutic strategies Reason for continued inpatient stay Substantial Risk for: inability to function, rapid decompensation and med/psych decompensation
[2022-05-05] MEDS: NaPROXEN 250 MG TABLET PO (20:57)
[2022-05-05] MEDS: risperiDONE 1 MG TABLET PO (20:58)
--- NOTE | 2022-05-05 23:11 | PC.ADMIT ---
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 Pt has stable housing in [facility]. Original Note: A white female aged 71 years [facility] following [facility] from [facility] and [facility]. Pt is not known to and is from the [facility] area, but originally from this area. Pt reports a distant psych IPLOC over twenty years ago. Pt denies any hospitalization for Etoh or substances. Pt arrived at the family home of her niece on 05/03 unexpectedly very early in the morning after flying in from [facility]. Pt's family noted significant weight loss that pt minimizes. Pt was disheveled and disorganized. Pt was irritated with changes in the home since she had been there last; pt said she found it disrespectful to the memory of her cousin the way her family was treating the home. Family reported pt was inpatient in October and hadn't followed through on treatment recommendations and is noncompliant. Pt reports she takes Risperdal 1mg PO at HS daily regularly as ordered. Pt's niece reported to [facility] that pt's son in [place] says pt is struggling at home and was recently found laying in a ditch. Pt was calm and cooperative during admission. Pt denies SI/HI, AH/VH and says is safe on the unit. Pt did say she was angry with her brothers whom she blamed for her admission to . Pt denies substance or Etoh use and DHILLON was negative. Medical issues include: Sjorgren's syndrome, asthma, and arthritis. [id number] done, admission orders obtained, initial treatment plan completed and pt is resting in room on 15 minute safety checks at this time. Pt took HS risperdal 1mg PO without issue before going to bed.
[2022-05-06] MEDS: NaPROXEN 250 MG TABLET PO (05:58)
[2022-05-06 06:00] VITALS: BP 157/86; PULSE 87; RESP 18; TEMP 36.3; O2SAT 93
[2022-05-06 08:07] LABS: Alanine Aminotransferase 9 U/L (0-31); Albumin Level 2.8 g/dL (3.5-5.0); Alkaline Phosphatase 92 U/L (39-117); Anion Gap 9 (12-20); Aspartate Amino Transferase 17 U/L (5-31); Bilirubin Total 0.4 mg/dL (0.0-1.0); Blood Urea Nitrogen 9 mg/dL (9-16); Calcium 9.1 mg/dL (8.4-10.2); Carbon Dioxide 25 mmol/L (22-29); Chloride 98 mmol/L (96-108); Cholesterol 149 mg/dL; Estimated Glomerular Filt Rate > 60; Glucose Fasting 87 mg/dL (60-99); HDL Cholesterol 45 mg/dL; LDL Cholesterol Calculated 91 mg/dl; Magnesium 1.8 mg/dL (1.6-2.6); Potassium 4.4 mmol/L (3.3-5.1); Sodium 128 mmol/L (135-145); Total Protein 8.7 g/dL (6.5-8.0); Triglycerides 68 mg/dL
[2022-05-06 08:27] LABS: TSH reflex Free T4 1.45 uIU/mL (0.32-4.0)
[2022-05-06] MEDS: Acetaminophen 325 MG TABLET 650 MG PO (09:41)
[2022-05-06] MEDS: Albuterol Sulfate 90 MCG 8 GM INHALER 2 PUFF INHALE (16:14)
[2022-05-06 18:00] VITALS: BP 147/81; PULSE 82; RESP 16; TEMP 36.6; O2SAT 92
--- NOTE | 2022-05-06 20:33 | P.PNPSI_ITS ---
Subjective Subjective Date of Service: 05/06/22 Reason For Visit: psychosis Subjective Notes: Conditional Voluntary Medical Problems Affecting Mental Status: No Interim History: pt cooperative; anxious; states she is here because family was worried about her. she admits she arrived from [place] to [place] without her family knowing she was coming; she admits to having nt eaten or slept for days; she reports depression; denies SI or HI Medication Compliance: Yes Side effects from medications: No Attending Groups: Yes Review of Systems Acute medical concerns: No Medical Review of Systems: unchanged Review of Systems Review of Systems CVS: No c/o chest pain, palpitations, no SOB AUTOMOT[employer] CONVERTER: No c/o dizziness, headache GI: No c/o Nausea, Vomiting, diarrhea, constipation or heartburn Constitutional: Reports no additional constitutional complaints, Denies chills, Denies fever(s) and Denies night sweats Eyes: Reports no additional eye complaints, Denies blurry vision, Denies change in vision, Denies diplopia, Denies eye discharge, Denies loss of vision and Denies eye pain Denies dizziness Cardiovascular: Reports no additional cardiovascular complaints, Denies chest pain, Denies lightheadedness, Denies Loss of Consciousness and Denies dyspnea Respiratory: Reports no additional respiratory complaints and Denies dyspnea Gastrointestinal: Reports no additional gastrointestinal complaints, Denies abdominal pain, Denies melena, Denies hematochezia, Denies change in bowel habits and Denies change in stool character Musculoskeletal: Reports no additional musculoskeletal complaints, Denies numbness and Denies tingling Reports behavioral changes, Denies dizziness, Denies loss of vision, Denies numbness and Denies tingling Psychiatric: Reports behavioral changes, Reports difficulty concentrating and Reports mood swings Endocrine: Reports no additional endocrine complaints Hematologic/Lymphatic: Reports no additional hematologic/lymphatic complaints Allergic/Immunologic: Reports no additional allergic/immunologic complaints Mental Status Exam Mental Status Exam Narrative: Alert but not oriented to situation, minimizing sx. Good eye contact, attentive. No Tics or Tremors. No abnormal involuntary movements. anxious and slight agitation, but overall cooperative, engaged. No pressured speech, spontaneous with regular rate and rhythm, normal volume. No prolonged speech latency or dysarthria. Mood is irritable; affect is labile. Denies SI/SIB/HI upon inquiry. Denies A/VH. Endorses paranoid delusional thought content. Thoughts are distracted, irrational at times. No known cognitive or memory impairment. Insight/ Judgment limited. Diagnostics Vital Signs (24Hr): Vital Signs - 24 hr 05/06/22 06:00 05/06/22 18:00 Temperature 97.4 F 97.8 F Pulse Rate 87 82 Respiratory Rate 18 16 Blood Pressure 157/86 H 147/81 H Pulse Oximetry 93 92 Oxygen Delivery Method Room Air BMI result Body Mass Index 18.2 Labs Results: 05/04/22 13:34 05/06/22 07:21 Labs: Laboratory Results - last 48 hr 05/04/22 05/04/22 05/06/22 22:02 22:02 07:21 Sodium 130 L 128 L Potassium 4.6 4.4 Chloride 100 98 Carbon Dioxide 25 25 Anion Gap 10 L 9 L BUN 11 9 Creatinine 1.15 0.69 Estim Creat Clear Calc 39.6 66.0 Estimated GFR 47 > 60 Random Glucose 87 Fasting Glucose 87 Calcium 8.4 9.1 D Magnesium 1.8 Total Bilirubin 0.4 AST 17 ALT 9 Alkaline Phosphatase 92 Total Protein 8.7 H Albumin 2.8 L Triglycerides 68 Cholesterol 149 LDL Cholesterol, Calc 91 HDL Cholesterol 45 TSH 1.45 Ethyl Alcohol < 10 Medications Medications Current Medications Acetaminophen (Acetaminophen 325 Mg Tablet) 650 mg PO Q6H PRN PRN Reason: Headache/Pain Mild Scale (1-3) Last Admin: 05/06/22 09:41 Dose: 650 mg Al Hydroxide/Mg Hydroxide (Magnesium Hydrox/Alum Hydrox 30 Ml Oral.Susp) 30 ml PO Q6H PRN PRN Reason: Heartburn/Nausea Albuterol Sulfate (Albuterol Sulfate 90 Mcg 8 Gm Inhaler) 2 puff INHALE Q4H PRN PRN Reason: asthma Last Admin: 05/06/22 16:14 Dose: 2 puff Clonidine HCl (Clonidine Hcl 0.1 Mg Tablet) 0.1 mg PO TID PRN; Protocol PRN Reason: hyperarousal Hydroxyzine HCl (Hydroxyzine Hcl 25 Mg Tablet) 25 mg PO BEDTIME PRN PRN Reason: Anxiety Magnesium Hydroxide (Milk Of Magnesia 30 Ml Oral.Susp) 30 ml PO DAILY PRN PRN Reason: Constipation Naproxen (Naproxen 250 Mg Tablet) 250 mg PO BID PRN PRN Reason: arthritis Last Admin: 05/06/22 05:58 Dose: 250 mg Risperidone (Risperidone 1 Mg Tablet) 1 mg PO BEDTIME PATEL Last Admin: 05/05/22 20:58 Dose: 1 mg Trazodone HCl (Trazodone Hcl 50 Mg Tablet) 50 mg PO BEDTIME PRN PRN Reason: Insomnia Allergies Allergies Allergy/AdvReac Type Severity Reaction Status Date / Time Sulfa (Sulfonamide Allergy Unknown Verified 05/04/22 12:17 Antibiotics) Assessment & Plan Assessment & Plan (1) Bipolar 1 disorder: Status: Acute Code(s): F31.9 - Bipolar disorder, unspecified Plan Mirlande is a 71 y.o. female who carries a dx of Bipolar I disorder. She presented to [facility] on 05/04/22 due to family bringing her in for concern of manic episode. Pt's family reports that she arrived unannounced on 05/03/22 from [place] and has been ?acting very manic.? There is a question of med-adherence. Per [facility] crisis eval, pt reported she is in the hospital because her family is against her and endorsed paranoid ideation of being followed due to hiding a special victim in her house. Hx of multiple previous psych admissions. Limited hx as pt is not from this area. Plan: Pt is a smoker but declines nicotine replacement therapy. Says she has been adherent with risperdal, however may not be reliable historian. Will continue risperdal 1 mg QHS and evaluate for response. Will start clonidine 0.1 mg TID PRN for hyperarousal, as pt has elevated BP and is anxious.? Q15 min safety checks, CV Monitor response to medications. Monitor for safety in the milieu. Discharge on stabilization. Patient seen. Chart reviewed. Discussed with team. Obtain collateral contact info?as needed 05/06: continue treatment plan I spent minutes with the patient and/or on the patient floor today, greater than?50% of which was spent counseling/coordinating care. Reason for contiued inpatient stay Substantial Risk for: harm to self, harm to others, inability to function and rapid decompensation
[2022-05-06] MEDS: risperiDONE 1 MG TABLET PO (21:27)
[2022-05-07] MEDS: NaPROXEN 250 MG TABLET PO (05:06)
[2022-05-07 06:00] VITALS: BP 101/64; PULSE 74; RESP 18; TEMP 36.8; O2SAT 92
--- NOTE | 2022-05-07 10:18 | HO.PSYCHPN ---
Subjective Subjective Date of Service: 05/07/22 Reason For Visit: psychosis Subjective Notes: Conditional Voluntary Medical Problems Affecting Mental Status: No Interim History: pt disheveled; in hospital gown; appears thin and malnourished; she reports her brother tricked her to get her to the hospital; she blames him fro being in the hospital; sasy she is too thin for her brother's taste. 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 Pt reports she had a 3 week hospitalization in [place] fro strep infection and they found that she had had a heart attack. She is unclear why she left [place] to come to [place]. States she rested well and she is focused on resting and eating well while her. She denies SI or Hi. Does report long period of stress [place] [facility] [employer] and says it was as bad as [place]. Medication Compliance: Yes Side effects from medications: No Review of Systems Acute medical concerns: Yes malnourishment Medical Review of Systems: unchanged Review of Systems Review of Systems CVS: No c/o chest pain, palpitations, no SOB PATIENT CARE ASSISTANT: No c/o dizziness, headache GI: No c/o Nausea, Vomiting, diarrhea, constipation or heartburn Constitutional: Reports as per HPI, Reports anorexia, Reports fatigue, Reports poor appetite and Reports weakness Eyes: Reports no additional eye complaints, Denies blurry vision, Denies change in vision, Denies diplopia, Denies eye discharge, Denies loss of vision and Denies eye pain Denies dizziness Cardiovascular: Reports no additional cardiovascular complaints, Denies chest pain, Denies lightheadedness, Denies Loss of Consciousness and Denies dyspnea Comments: pt report hx [place] in 2020 Respiratory: Reports no additional respiratory complaints and Denies dyspnea Gastrointestinal: Reports no additional gastrointestinal complaints Genitourinary: Reports no additional female genitourinary complaints Musculoskeletal: Reports no additional musculoskeletal complaints Skin/Breast: Reports system reviewed and no additional complaints, except as docu Reports behavioral changes, Denies dizziness, Denies loss of vision and Reports weakness Psychiatric: Reports behavioral changes, Reports difficulty concentrating and Reports mood swings Endocrine: Reports fatigue Hematologic/Lymphatic: Reports no additional hematologic/lymphatic complaints Allergic/Immunologic: Reports no additional allergic/immunologic complaints Mental Status Exam Mental Status Exam Narrative: Alert but not oriented to situation, minimizing sx. Good eye contact, attentive. No Tics or Tremors. No abnormal involuntary movements. anxious and slight agitation, but overall cooperative, engaged. No pressured speech, spontaneous with regular rate and rhythm, normal volume. possible confabulation. No prolonged speech latency or dysarthria. Mood is mildy irritable; affect is labile. Denies SI/SIB/HI upon inquiry. Denies A/VH. Endorses paranoid delusional thought content. Thoughts are distracted, irrational at times. No known cognitive or memory impairment. Insight/ Judgment limited. Diagnostics Vital Signs (24Hr): Vital Signs - 24 hr 05/06/22 18:00 05/07/22 06:00 Temperature 97.8 F 98.2 F Pulse Rate 82 74 Respiratory Rate 16 18 Blood Pressure 147/81 H 101/64 Pulse Oximetry 92 92 Oxygen Delivery Method Room Air BMI result Body Mass Index 18.2 Labs Results: 05/04/22 13:34 05/06/22 07:21 Labs: Laboratory Results - last 48 hr 05/06/22 07:21 Sodium 128 L Potassium 4.4 Chloride 98 Carbon Dioxide 25 Anion Gap 9 L BUN 9 Creatinine 0.69 Estim Creat Clear Calc 66.0 Estimated GFR > 60 Fasting Glucose 87 Calcium 9.1 D Magnesium 1.8 Total Bilirubin 0.4 AST 17 ALT 9 Alkaline Phosphatase 92 Total Protein 8.7 H Albumin 2.8 L Triglycerides 68 Cholesterol 149 LDL Cholesterol, Calc 91 HDL Cholesterol 45 TSH 1.45 EKG EKG Comment: ekg reviewed Medications Medications Current Medications Acetaminophen (Acetaminophen 325 Mg Tablet) 650 mg PO Q6H PRN PRN Reason: Headache/Pain Mild Scale (1-3) Last Admin: 05/06/22 09:41 Dose: 650 mg Al Hydroxide/Mg Hydroxide (Magnesium Hydrox/Alum Hydrox 30 Ml Oral.Susp) 30 ml PO Q6H PRN PRN Reason: Heartburn/Nausea Albuterol Sulfate (Albuterol Sulfate 90 Mcg 8 Gm Inhaler) 2 puff INHALE Q4H PRN PRN Reason: asthma Last Admin: 05/06/22 16:14 Dose: 2 puff Clonidine HCl (Clonidine Hcl 0.1 Mg Tablet) 0.1 mg PO TID PRN; Protocol PRN Reason: hyperarousal Hydroxyzine HCl (Hydroxyzine Hcl 25 Mg Tablet) 25 mg PO BEDTIME PRN PRN Reason: Anxiety Magnesium Hydroxide (Milk Of Magnesia 30 Ml Oral.Susp) 30 ml PO DAILY PRN PRN Reason: Constipation Naproxen (Naproxen 250 Mg Tablet) 250 mg PO BID PRN PRN Reason: arthritis Last Admin: 05/07/22 05:06 Dose: 250 mg Risperidone (Risperidone 1 Mg Tablet) 1 mg PO BEDTIME PATEL Last Admin: 05/06/22 21:27 Dose: 1 mg Trazodone HCl (Trazodone Hcl 50 Mg Tablet) 50 mg PO BEDTIME PRN PRN Reason: Insomnia Allergies Allergies Allergy/AdvReac Type Severity Reaction Status Date / Time Sulfa (Sulfonamide Allergy Unknown Verified 05/04/22 12:17 Antibiotics) Assessment & Plan Assessment & Plan (1) Bipolar 1 disorder: Status: Acute Code(s): F31.9 - Bipolar disorder, unspecified Plan Mirlande is a 71 y.o. female who carries a dx of Bipolar I disorder. She presented [place] [facility] on 05[place]04[place]22 due to family bringing her in for concern of manic episode. Pt's family reports that she arrived unannounced on 05/03/22 from [place] and has been ?acting very manic.? There is a question of med-adherence. Per [facility] crisis eval, pt reported she is in the hospital because her family is against her and endorsed paranoid ideation of being followed due to hiding a special victim in her house. Hx of multiple previous psych admissions. Limited hx as pt is not from this area. Plan: Pt is a smoker but declines nicotine replacement therapy. Says she has been adherent with risperdal, however may not be reliable historian. Will continue risperdal 1 mg QHS and evaluate for response. Will start clonidine 0.1 mg TID PRN for hyperarousal, as pt has elevated BP and is anxious.? Q15 min safety checks, CV Monitor response to medications. Monitor for safety in the milieu. Discharge on stabilization. Patient seen. Chart reviewed. Discussed with team. Obtain collateral contact info?as needed 05/06: continue treatment plan I spent _30 minutes with the patient and/or on the patient floor today, greater than?50% of which was spent counseling/coordinating care. Patient educated on: diagnosis and medication risk/benefits Informed Consent: further education needed Reason for contiued inpatient stay Substantial Risk for: harm to self, harm to others, inability to function, rapid decompensation and med/psych decompensation
[2022-05-07] MEDS: risperiDONE 1 MG TABLET PO (20:55)
[2022-05-07 21:16] VITALS: BP 142/71; PULSE 61; TEMP 37.1; O2SAT 95
[2022-05-08] MEDS: NaPROXEN 250 MG TABLET PO ×2 (05:40→20:22)
[2022-05-08 06:00] VITALS: BP 107/55; PULSE 75; RESP 16; TEMP 36.9; O2SAT 96
[2022-05-08 10:08] LABS: Folate 12.2 ng/mL (> or = 4.0); Vitamin B12 211 pg/mL (200-900)
[2022-05-08] MEDS: Acetaminophen 325 MG TABLET 650 MG PO (11:00)
--- NOTE | 2022-05-08 14:18 | P.PNPSI_ITS ---
Subjective Subjective Date of Service: 05/08/22 Reason For Visit: psychosis Subjective Notes: Conditional Voluntary Interim History: The patient was transferred from to [facility] psych Unit. According to the nurse's report, the patient has been compliant with treatment. She denies side effects and she is pleasant and cooperative. On interview, the patient stated that she has been taking Risperdal for years and it made her functional and able to work with this medication. Please see HPI O of the admission note for further details of how come the patient in the in [place]. We discussed risks, benefits, side-effects and alternatives and she agreed to continue taking Risperdal 1 mg p.o. q.h.s.. Medication Compliance: Yes Side effects from medications: No Review of Systems Acute medical concerns: No Medical Review of Systems: unchanged Mental Status Exam Mental Status Exam Patient Appearance: Appropriate ( On hospital gowns) and Unkempt Patient Orientation: Person and Situation Level of Consciousness: Awake Patient Behavior: Guarded, Cooperative and Passive Mood Description: Suspicious and Appropriate Affect Description: Anxious Ability to Follow Directions: Good Speech Pattern: Clear Hallucinations: None Delusions: Bizarre Thought Process: Distracted Thought Content: positive for [place], positive for Circumstantial and positive for Poverty of Content Judgement: Fair Diagnostics Vital Signs (24Hr): Vital Signs - 24 hr 05/07/22 21:16 05/08/22 06:00 Temperature 98.7 F 98.4 F Pulse Rate 61 75 Respiratory Rate 16 Blood Pressure 142/71 H 107/55 L Pulse Oximetry 95 96 Oxygen Delivery Method Room Air BMI result Body Mass Index 18.2 Labs Results: 05/04/22 13:34 05/06/22 07:21 Labs: Laboratory Results - last 48 hr 05/06/22 07:21 Vitamin B12 211 Folate 12.2 Medications Medications Current Medications Acetaminophen (Acetaminophen 325 Mg Tablet) 650 mg PO Q6H PRN PRN Reason: Headache/Pain Mild Scale (1-3) Last Admin: 05/08/22 11:00 Dose: 650 mg Al Hydroxide/Mg Hydroxide (Magnesium Hydrox/Alum Hydrox 30 Ml Oral.Susp) 30 ml PO Q6H PRN PRN Reason: Heartburn/Nausea Albuterol Sulfate (Albuterol Sulfate 90 Mcg 8 Gm Inhaler) 2 puff INHALE Q4H PRN PRN Reason: asthma Last Admin: 05/06/22 16:14 Dose: 2 puff Clonidine HCl (Clonidine Hcl 0.1 Mg Tablet) 0.1 mg PO TID PRN; Protocol PRN Reason: hyperarousal Hydroxyzine HCl (Hydroxyzine Hcl 25 Mg Tablet) 25 mg PO BEDTIME PRN PRN Reason: Anxiety Magnesium Hydroxide (Milk Of Magnesia 30 Ml Oral.Susp) 30 ml PO DAILY PRN PRN Reason: Constipation Naproxen (Naproxen 250 Mg Tablet) 250 mg PO BID PRN PRN Reason: arthritis Last Admin: 05/08/22 05:40 Dose: 250 mg Risperidone (Risperidone 1 Mg Tablet) 1 mg PO BEDTIME PATEL Last Admin: 05/07/22 20:55 Dose: 1 mg Trazodone HCl (Trazodone Hcl 50 Mg Tablet) 50 mg PO BEDTIME PRN PRN Reason: Insomnia Allergies Allergies Allergy/AdvReac Type Severity Reaction Status Date / Time Sulfa (Sulfonamide Allergy Unknown Verified 05/04/22 12:17 Antibiotics) Assessment & Plan Assessment & Plan (1) Bipolar 1 disorder: Status: Acute Code(s): F31.9 - Bipolar disorder, unspecified Plan Mirlande is a 71 y.o. female who carries a dx of Bipolar I disorder. She [place] [facility] [place] due to family bringing her in for concern of manic epis ode. Pt's family reports that she arrived unannounced on 05/03/22 from [place] and has been ?acting very manic.? There is a question of med-adherence. Per [facility] crisis eval, pt reported she is in the hospital because her family is against her and endorsed paranoid ideation of being followed due to hiding a special victim in her house. Hx of multiple previous psych admissions. Limited hx as pt is not from this area. Plan: Pt is a smoker but declines nicotine replacement therapy. Says she has been adherent with risperdal, however may not be reliable historian. Will continue risperdal 1 mg QHS and evaluate for response. Will start clonidine 0.1 mg TID PRN for hyperarousal, as pt has elevated BP and is anxious.? Q15 min safety checks, CV Monitor response to medications. Monitor for safety in the milieu. Discharge on stabilization. Patient seen. Chart reviewed. Discussed with team. Obtain collateral contact info?as needed I spent __20____ minutes with the patient and/or on the patient floor today, greater than?50% of which was spent counseling/coordinating care. Reason for contiued inpatient stay Substantial Risk for: inability to function, rapid decompensation and med/psych decompensation
--- NOTE | 2022-05-08 17:05 | PC.NURSE ---
Pt arrived to S[facility] via wc from at 13:27. reviewed belongs list with pt. clothing missing-called to floor and 2 bags of clothes received from . 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 other belongings in pt belonging closet. clothes remained in pts room.pts meal arrrived with her. set her up to eat in room and stated pt will be eating in dayroom after today since we would pts out of room often and not isolating. pt agreeable. spoke with ajay duenas for lengthy conversation. then pt requested phone to call [employer] in [place]. pt then had a visit from nazanin prior to dinner. No c/o from pt. Pt very cooperative and pleasant. out in day room for dinner
[2022-05-08 18:00] VITALS: BP 136/90; PULSE 64; TEMP 36.7; O2SAT 96
[2022-05-08] MEDS: risperiDONE 1 MG TABLET PO (20:22)
[2022-05-09] MEDS: Acetaminophen 325 MG TABLET 650 MG PO (05:35)
[2022-05-09 07:00] VITALS: BP 168/89; PULSE 75; RESP 17; TEMP 36.2; O2SAT 92
[2022-05-09] MEDS: NaPROXEN 250 MG TABLET PO ×2 (08:41→20:39)
--- NOTE | 2022-05-09 12:00 | HO.PSYCHPN ---
Subjective Subjective Date of Service: 05/09/22 Reason For Visit: psychosis Subjective Notes: Conditional Voluntary Interim History: The nursing staff reported the patient has been common cooperative alert and oriented x3. On interview, the patient reports that she is doing fine with Risperdal 1 mg p.o. q.h.s.. I offer her an increased dose but she wants to try 1 mg for the meantime. The home health care social worker will contact his brother who is the healthcare proxy in [place] and we will try to make an online family meeting for discharge planning. Mental Status Exam Mental Status Exam Patient Appearance: Appropriate Patient Orientation: Person, Place and Situation Level of Consciousness: Awake Patient Behavior: Guarded and Cooperative Mood Description: Withdrawn Affect Description: Constricted Ability to Follow Directions: Good Speech Pattern: Clear Hallucinations: None Delusions: Not Present Thought Process: Linear Thought Content: positive for Circumstantial Judgement: Fair Diagnostics Vital Signs (24Hr): Vital Signs - 24 hr 05/08/22 18:00 05/09/22 07:00 Temperature 98.1 F 97.2 F Pulse Rate 64 75 Respiratory Rate 17 Blood Pressure 136/90 H 168/89 H Pulse Oximetry 96 92 Oxygen Delivery Method Room Air Room Air BMI result Body Mass Index 18.2 Labs Results: 05/04/22 13:34 05/06/22 07:21 Labs: Laboratory Results - last 48 hr 05/06/22 07:21 Vitamin B12 211 Folate 12.2 Medications Medications Current Medications Acetaminophen (Acetaminophen 325 Mg Tablet) 650 mg PO Q6H PRN PRN Reason: Headache/Pain Mild Scale (1-3) Last Admin: 05/09/22 05:35 Dose: 650 mg Al Hydroxide/Mg Hydroxide (Magnesium Hydrox/Alum Hydrox 30 Ml Oral.Susp) 30 ml PO Q6H PRN PRN Reason: Heartburn/Nausea Albuterol Sulfate (Albuterol Sulfate 90 Mcg 8 Gm Inhaler) 2 puff INHALE Q4H PRN PRN Reason: asthma Last Admin: 05/06/22 16:14 Dose: 2 puff Clonidine HCl (Clonidine Hcl 0.1 Mg Tablet) 0.1 mg PO TID PRN; Protocol PRN Reason: hyperarousal Hydroxyzine HCl (Hydroxyzine Hcl 25 Mg Tablet) 25 mg PO BEDTIME PRN PRN Reason: Anxiety Magnesium Hydroxide (Milk Of Magnesia 30 Ml Oral.Susp) 30 ml PO DAILY PRN PRN Reason: Constipation Naproxen (Naproxen 250 Mg Tablet) 250 mg PO BID PRN PRN Reason: arthritis Last Admin: 05/09/22 08:41 Dose: 250 mg Risperidone (Risperidone 1 Mg Tablet) 1 mg PO BEDTIME PATEL Last Admin: 05/08/22 20:22 Dose: 1 mg Trazodone HCl (Trazodone Hcl 50 Mg Tablet) 50 mg PO BEDTIME PRN PRN Reason: Insomnia Allergies Allergies Allergy/AdvReac Type Severity Reaction Status Date / Time Sulfa (Sulfonamide Allergy Unknown Verified 05/04/22 12:17 Antibiotics) Assessment & Plan Assessment & Plan (1) Bipolar 1 disorder: Status: Acute Code(s): F31.9 - Bipolar disorder, unspecified Plan Mirlande is a 71 y.o. female who carries a dx of Bipolar I disorder. She presented [place] [facility] on 05/04/22 due to family bringing her in for concern of manic episode. Pt's family reports that she arrived unannounced on 05/03/22 from [place] and has been ?acting very manic.? There is a question of med-adherence. Per [facility] crisis eval, pt reported she is in the hospital because her family is against her and endorsed paranoid ideation of being followed due to hiding a special victim in her house. Hx of multiple previous psych admissions. Limited hx as pt is not from this area. Plan: Pt is a smoker but declines nicotine replacement therapy. Says she has been adherent with risperdal, however may not be reliable historian. Will continue risperdal 1 mg QHS and evaluate for response. Will start clonidine 0.1 mg TID PRN for hyperarousal, as pt has elevated BP and is anxious.? Q15 min safety checks, CV Monitor response to medications. Monitor for safety in the milieu. Discharge on stabilization. Patient seen. Chart reviewed. Discussed with team. Obtain collateral contact info?as needed I offer long-acting injectable Invega Sustenna but the patient is not interested at this moment. I spent ___20___ minutes with the patient and/or on the patient floor today, greater than?50% of which was spent counseling/coordinating care. Reason for contiued inpatient stay Substantial Risk for: inability to function, rapid decompensation and med/psych decompensation
[2022-05-09 13:31] VITALS: BMI 18.2
[2022-05-09] MEDS: risperiDONE 1 MG TABLET PO (20:30)
[2022-05-09 20:45] VITALS: BP 131/63; PULSE 82; RESP 18; TEMP 36.8; O2SAT 92
[2022-05-10] MEDS: Acetaminophen 325 MG TABLET 650 MG PO (05:02)
[2022-05-10 07:30] VITALS: BP 128/62; PULSE 60; RESP 17; TEMP 36.4; O2SAT 92
[2022-05-10] MEDS: NaPROXEN 250 MG TABLET PO ×2 (08:33→20:21)
--- NOTE | 2022-05-10 15:02 | HO.PSYCHPN ---
Subjective Subjective Date of Service: 05/10/22 Reason For Visit: psychosis Subjective Notes: Conditional Voluntary Interim History: The nursing staff reported the patient slept well last night, she had been pleasant and cooperative. Today we had a family meeting with the social science professor in her knees, the family is willing to take her back to [place]. On interview the patient denies new symptoms she denies having any side effects with the current medication. She agreed to do CT scan as part of the medical worked out. Mental Status Exam Mental Status Exam Patient Appearance: Well Grooomed Patient Orientation: Person Level of Consciousness: Awake Patient Behavior: Appropriate Mood Description: Withdrawn Affect Description: Constricted Ability to Follow Directions: Good Speech Pattern: Clear Hallucinations: None Delusions: Not Present Thought Process: Distracted Thought Content: positive for [place] Judgement: Fair Diagnostics Vital Signs (24Hr): Vital Signs - 24 hr 05/09/22 20:45 05/10/22 07:30 Temperature 98.2 F 97.5 F Pulse Rate 82 60 Respiratory Rate 18 17 Blood Pressure 131/63 128/62 Pulse Oximetry 92 92 Oxygen Delivery Method Room Air Room Air BMI result Body Mass Index 18.2 Labs Results: 05/04/22 13:34 05/06/22 07:21 Medications Medications Current Medications Acetaminophen (Acetaminophen 325 Mg Tablet) 650 mg PO Q6H PRN PRN Reason: Headache/Pain Mild Scale (1-3) Last Admin: 05/10/22 05:02 Dose: 650 mg Al Hydroxide/Mg Hydroxide (Magnesium Hydrox/Alum Hydrox 30 Ml Oral.Susp) 30 ml PO Q6H PRN PRN Reason: Heartburn/Nausea Albuterol Sulfate (Albuterol Sulfate 90 Mcg 8 Gm Inhaler) 2 puff INHALE Q4H PRN PRN Reason: asthma Last Admin: 05/06/22 16:14 Dose: 2 puff Clonidine HCl (Clonidine Hcl 0.1 Mg Tablet) 0.1 mg PO TID PRN; Protocol PRN Reason: hyperarousal Hydroxyzine HCl (Hydroxyzine Hcl 25 Mg Tablet) 25 mg PO BEDTIME PRN PRN Reason: Anxiety Magnesium Hydroxide (Milk Of Magnesia 30 Ml Oral.Susp) 30 ml PO DAILY PRN PRN Reason: Constipation Naproxen (Naproxen 250 Mg Tablet) 250 mg PO BID PRN PRN Reason: arthritis Last Admin: 05/10/22 08:33 Dose: 250 mg Risperidone (Risperidone 1 Mg Tablet) 1 mg PO BEDTIME PATEL Last Admin: 05/09/22 20:30 Dose: 1 mg Trazodone HCl (Trazodone Hcl 50 Mg Tablet) 50 mg PO BEDTIME PRN PRN Reason: Insomnia Allergies Allergies Allergy/AdvReac Type Severity Reaction Status Date / Time Sulfa (Sulfonamide Allergy Unknown Verified 05/04/22 12:17 Antibiotics) Assessment & Plan Assessment & Plan (1) Bipolar 1 disorder: Status: Acute Code(s): F31.9 - Bipolar disorder, unspecified Plan Mirlande is a 71 y.o. female who carries a dx of Bipolar I disorder. She presented [place] [facility] [place] due to family bringing her in for concern of manic episode. Pt's family reports that she arrived unannounced on 05/03/22 from [place] and has been ?acting very manic.? There is a question of med-adherence. Per [facility] crisis eval, pt reported she is in the hospital because her family is against her and endorsed paranoid ideation of being followed due to hiding a special victim in her house. Hx of multiple previous psych admissions. Limited hx as pt is not from this area. Plan: Pt is a smoker but declines nicotine replacement therapy. Says she has been adherent with risperdal, however may not be reliable historian. Will continue risperdal 1 mg QHS and evaluate for response. Will start clonidine 0.1 mg TID PRN for hyperarousal, as pt has elevated BP and is anxious.? Q15 min safety checks, CV Monitor response to medications. Monitor for safety in the milieu. Discharge on stabilization. Patient seen. Chart reviewed. Discussed with team. Obtain collateral contact info?as needed I offer long-acting injectable Invega Sustenna but the patient is not interested at this moment. I spent __20____ minutes with the patient and/or on the patient floor today, greater than?50% of which was spent counseling/coordinating care. Reason for contiued inpatient stay Substantial Risk for: inability to function, rapid decompensation and med/psych decompensation
[2022-05-10 17:25] VITALS: BP 113/54; PULSE 63; RESP 12; TEMP 37.7; O2SAT 92
[2022-05-10] MEDS: risperiDONE 1 MG TABLET PO (20:18)
[2022-05-10 20:57] VITALS: BP 113/54; PULSE 73; RESP 14; TEMP 36.9; O2SAT 92
[2022-05-11] MEDS: Acetaminophen 325 MG TABLET 650 MG PO ×2 (04:32→15:28)
[2022-05-11 07:00] VITALS: BMI 20.5
[2022-05-11 11:45] LABS: COVID-19 Test Negative (Negative)
--- NOTE | 2022-05-11 16:30 | HO.PSYCHPN ---
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 The CT scan came back negative with no new findings. On interview the patient denies new symptoms she is pleasantly confused Mental Status Exam Mental Status Exam Patient Appearance: Well Grooomed Patient Orientation: Person and Situation Level of Consciousness: Awake Patient Behavior: Passive Mood Description: Withdrawn Affect Description: Constricted Patient Cognition Impaired: Yes Ability to Follow Directions: Good Speech Pattern: Clear Hallucinations: None Delusions: Not Present Thought Process: Distracted Thought Content: positive for Circumstantial and positive for Poverty of Content Judgement: Fair Diagnostics Vital Signs (24Hr): Vital Signs - 24 hr 05/10/22 17:25 05/10/22 20:57 Temperature 99.8 F 98.4 F Pulse Rate 63 73 Respiratory Rate 12 14 Blood Pressure 113/54 L 113/54 L Pulse Oximetry 92 92 Oxygen Delivery Method Room Air Room Air BMI result Body Mass Index 20.5 Labs Results: 05/04/22 13:34 05/06/22 07:21 Labs: Laboratory Results - last 48 hr 05/04/22 05/04/22 05/04/22 13:07 13:07 13:33 WBC Sodium 126 L Urine Color YELLOW Urine Opiates Screen Not Detected COVID-19 ([facility]) COVID-19 Clin Com 05/04/22 05/11/22 13:34 11:15 WBC 5.0 Sodium Urine Color Urine Opiates Screen COVID-19 ([facility]) Negative COVID-19 Clin Com See Note Imaging Radiology Impressions: ITS Impressions Head CT 05/10/22 20:13 IMPRESSION: No acute intracranial pathology. Medications Medications Current Medications Acetaminophen (Acetaminophen 325 Mg Tablet) 650 mg PO Q6H PRN PRN Reason: Headache/Pain Mild Scale (1-3) Last Admin: 05/11/22 15:28 Dose: 650 mg Al Hydroxide/Mg Hydroxide (Magnesium Hydrox/Alum Hydrox 30 Ml Oral.Susp) 30 ml PO Q6H PRN PRN Reason: Heartburn/Nausea Albuterol Sulfate (Albuterol Sulfate 90 Mcg 8 Gm Inhaler) 2 puff INHALE Q4H PRN PRN Reason: asthma Last Admin: 05/06/22 16:14 Dose: 2 puff Clonidine HCl (Clonidine Hcl 0.1 Mg Tablet) 0.1 mg PO TID PRN; Protocol PRN Reason: hyperarousal Hydroxyzine HCl (Hydroxyzine Hcl 25 Mg Tablet) 25 mg PO BEDTIME PRN PRN Reason: Anxiety Magnesium Hydroxide (Milk Of Magnesia 30 Ml Oral.Susp) 30 ml PO DAILY PRN PRN Reason: Constipation Naproxen (Naproxen 250 Mg Tablet) 250 mg PO BID PRN PRN Reason: arthritis Last Admin: 05/10/22 20:21 Dose: 250 mg Risperidone (Risperidone 1 Mg Tablet) 1 mg PO BEDTIME PATEL Last Admin: 05/10/22 20:18 Dose: 1 mg Trazodone HCl (Trazodone Hcl 50 Mg Tablet) 50 mg PO BEDTIME PRN PRN Reason: Insomnia Allergies Allergies Allergy/AdvReac Type Severity Reaction Status Date / Time Sulfa (Sulfonamide Allergy Unknown Verified 05/04/22 12:17 Antibiotics) Assessment & Plan Assessment & Plan (1) Bipolar 1 disorder: Status: Acute Code(s): F31.9 - Bipolar disorder, unspecified Plan Mirlande is a 71 y.o. female who carries a dx of Bipolar I disorder. She presented to [facility] ED on 05/04/22 due to family bringing her in for concern of manic episode. Pt's family reports that she arrived unannounced on 05/03/22 from [place] and has been ?acting very manic.? There is a question of med-adherence. Per [facility] crisis eval, pt reported she is in the hospital because her family is against her and endorsed paranoid ideation of being followed due to hiding a special victim in her house. Hx of multiple previous psych admissions. Limited hx as pt is not from this area. Plan: Pt is a smoker but declines nicotine replacement therapy. Says she has been adherent with risperdal, however may not be reliable historian. Will continue risperdal 1 mg QHS and evaluate for response. Will start clonidine 0.1 mg TID PRN for hyperarousal, as pt has elevated BP and is anxious.? Q15 min safety checks, CV Monitor response to medications. Monitor for safety in the milieu. Discharge on stabilization. Patient seen. Chart reviewed. Discussed with team. Obtain collateral contact info?as needed I offer long-acting injectable Invega Sustenna but the patient is not interested at this moment. I spent ___20___ minutes with the patient and/or on the patient floor today, greater than?50% of which was spent counseling/coordinating care. Reason for contiued inpatient stay Substantial Risk for: inability to function, rapid decompensation and med/psych decompensation
[2022-05-11 19:30] VITALS: BP 140/92; PULSE 78; RESP 16; TEMP 36.9; O2SAT 92
[2022-05-11] MEDS: risperiDONE 1 MG TABLET PO (20:11)
[2022-05-11] MEDS: NaPROXEN 250 MG TABLET PO (20:11)
[2022-05-12 07:45] VITALS: BP 118/69; PULSE 81; RESP 16; TEMP 36.5; O2SAT 94
[2022-05-12] MEDS: NaPROXEN 250 MG TABLET PO ×2 (09:00→20:20)
--- NOTE | 2022-05-12 13:18 | P.PNPSI_ITS ---
Subjective Subjective Date of Service: 05/12/22 Reason For Visit: psychosis Subjective Notes: Conditional Voluntary Interim History: the nursing staff reported the patient has been compliant with treatment, she denies new symptoms, no evidence of psychosis or melissa at this moment. We had a conversation with her relatives that she will be discharged tomorrow to the care of her knees so she can go back to [facility]. On interview the patient denies new symptoms she is happy with the plan of discharge tomorrow. Mental Status Exam Mental Status Exam Patient Appearance: Well Grooomed Patient Orientation: Person and Situation Level of Consciousness: Awake Patient Behavior: Cooperative Mood Description: Constricted Affect Description: Constricted Patient Cognition Impaired: Yes Ability to Follow Directions: Good Speech Pattern: Clear Hallucinations: None Thought Process: Linear Thought Content: positive for [place] Judgement: Fair Diagnostics Vital Signs (24Hr): Vital Signs - 24 hr 05/11/22 19:30 05/12/22 07:45 Temperature 98.5 F 97.7 F Pulse Rate 78 81 Respiratory Rate 16 16 Blood Pressure 140/92 H 118/69 Pulse Oximetry 92 94 Oxygen Delivery Method Room Air Room Air BMI result Body Mass Index 20.5 Labs Results: 05/04/22 13:34 05/06/22 07:21 Labs: Laboratory Results - last 48 hr 05/04/22 05/04/22 05/04/22 13:07 13:07 13:33 WBC Sodium 126 L Urine Color YELLOW Urine Opiates Screen Not Detected COVID-19 ([facility]) COVID-19 Clin Com 05/04/22 05/11/22 13:34 11:15 WBC 5.0 Sodium Urine Color Urine Opiates Screen COVID-19 ([facility]) Negative COVID-19 Clin Com See Note Imaging Radiology Impressions: ITS Impressions Head CT 05/10/22 20:13 IMPRESSION: No acute intracranial pathology. Medications Medications Current Medications Acetaminophen (Acetaminophen 325 Mg Tablet) 650 mg PO Q6H PRN PRN Reason: Headache/Pain Mild Scale (1-3) Last Admin: 05/11/22 15:28 Dose: 650 mg Al Hydroxide/Mg Hydroxide (Magnesium Hydrox/Alum Hydrox 30 Ml Oral.Susp) 30 ml PO Q6H PRN PRN Reason: Heartburn/Nausea Albuterol Sulfate (Albuterol Sulfate 90 Mcg 8 Gm Inhaler) 2 puff INHALE Q4H PRN PRN Reason: asthma Last Admin: 05/06/22 16:14 Dose: 2 puff Clonidine HCl (Clonidine Hcl 0.1 Mg Tablet) 0.1 mg PO TID PRN; Protocol PRN Reason: hyperarousal Hydroxyzine HCl (Hydroxyzine Hcl 25 Mg Tablet) 25 mg PO BEDTIME PRN PRN Reason: Anxiety Magnesium Hydroxide (Milk Of Magnesia 30 Ml Oral.Susp) 30 ml PO DAILY PRN PRN Reason: Constipation Naproxen (Naproxen 250 Mg Tablet) 250 mg PO BID PRN PRN Reason: arthritis Last Admin: 05/12/22 09:00 Dose: 250 mg Risperidone (Risperidone 1 Mg Tablet) 1 mg PO BEDTIME PATEL Last Admin: 05/11/22 20:11 Dose: 1 mg Trazodone HCl (Trazodone Hcl 50 Mg Tablet) 50 mg PO BEDTIME PRN PRN Reason: Insomnia Allergies Allergies Allergy/AdvReac Type Severity Reaction Status Date / Time Sulfa (Sulfonamide Allergy Unknown Verified 05/04/22 12:17 Antibiotics) Assessment & Plan Assessment & Plan (1) Bipolar 1 disorder: Status: Acute Code(s): F31.9 - Bipolar disorder, unspecified Plan Mirlande is a 71 y.o. female who carries a dx of Bipolar I disorder. She presented to [facility] ED on 05/04/22 due to family bringing her in for concern of manic episode. Pt's family reports that she arrived unannounced on 05/03/22 from [place] and has been ?acting very manic.? There is a question of med-adherence. Per [facility] crisis eval, pt reported she is in the hospital because her family is against her and endorsed paranoid ideation of being followed due to hiding a special victim in her house. Hx of multiple previous psych admissions. Limited hx as pt is not from this area. Plan: Pt is a smoker but declines nicotine replacement therapy. Says she has been adherent with risperdal, however may not be reliable historian. Will continue risperdal 1 mg QHS and evaluate for response. Will start clonidine 0.1 mg TID PRN for hyperarousal, as pt has elevated BP and is anxious.? She scored 19/30 on the [place] test Q15 min safety checks, CV Monitor response to medications. Monitor for safety in the milieu. Discharge on stabilization. Patient seen. Chart reviewed. Discussed with team. Obtain collateral contact info?as needed I offer long-acting injectable Invega Sustenna but the patient is not interested at this moment. I spent ___20___ minutes with the patient and/or on the patient floor today, greater than?50% of which was spent counseling/coordinating care. Reason for contiued inpatient stay Substantial Risk for: inability to function, rapid decompensation and med/psych decompensation
--- NOTE | 2022-05-12 13:26 | PM.PSYDC ---
DS: Providers Provider Date of Service: 05/12/22 Date of admission: 05/05/22 17:29 Date of discharge: 05/13/22 Primary care physician: Nonstaff Physician DS: Diagnosis Discharge Diagnosis (1) Bipolar 1 disorder: Status: Acute DS: Medications Discharge Medications Home Medications: Home Medications Medication Instructions Recorded Confirmed No Known Home Meds 05/05/22 05/05/22 Mental Status Exam Mental Status Exam Patient Appearance: Well Grooomed Patient Orientation: Person Level of Consciousness: Awake Patient Behavior: Appropriate Mood Description: Calm Affect Description: Constricted Patient Cognition Impaired: Yes Ability to Follow Directions: Good Speech Pattern: Clear Hallucinations: None Delusions: Not Present Thought Process: Distracted Thought Content: positive for Circumstantial Judgement: Fair Data Data Completed and Pending Completed studies during hospitalization [Text1]: 05/04/22 05/04/22 05/04/22 13:07 13:07 13:33 WBC Sodium 126 L Potassium Chloride Carbon Dioxide Anion Gap BUN Creatinine Estim Creat Clear Calc Estimated GFR Fasting Glucose Calcium Magnesium Total Bilirubin AST ALT Alkaline Phosphatase Total Protein Albumin Triglycerides Cholesterol LDL Cholesterol, Calc HDL Cholesterol Vitamin B12 Folate TSH Urine Color YELLOW Urine Opiates Screen Not Detected COVID-19 ([facility]) [employer] 05/04/22 05/06/22 05/06/22 13:34 07:21 07:21 WBC 5.0 Sodium 128 L Potassium 4.4 Chloride 98 Carbon Dioxide 25 Anion Gap 9 L BUN 9 Creatinine 0.69 Estim Creat Clear Calc 66.0 Estimated GFR > 60 Fasting Glucose 87 Calcium 9.1 D Magnesium 1.8 Total Bilirubin 0.4 AST 17 ALT 9 Alkaline Phosphatase 92 Total Protein 8.7 H Albumin 2.8 L Triglycerides 68 Cholesterol 149 LDL Cholesterol, Calc 91 HDL Cholesterol 45 Vitamin B12 211 Folate 12.2 TSH 1.45 Urine Color Urine Opiates Screen COVID-19 ([facility]) COVID-19 [employer] 05/11/22 11:15 WBC Sodium Potassium Chloride Carbon Dioxide Anion Gap BUN Creatinine Estim Creat Clear Calc Estimated GFR Fasting Glucose Calcium Magnesium Total Bilirubin AST ALT Alkaline Phosphatase Total Protein Albumin Triglycerides Cholesterol LDL Cholesterol, Calc HDL Cholesterol Vitamin B12 Folate TSH Urine Color Urine Opiates Screen COVID-19 ([facility]) Negative COVID-19 Clin [employer] See Note Imaging Diagnostic Imaging Impressions Head CT 05/10/22 20:13 IMPRESSION: No acute intracranial pathology. DS: Summary Hospital Course Hospital Course: the patient was admitted for manic and psychotic symptoms please see the HPI of the admission note for further details. On admission, the patient reported that she was on Risperdal and has worked for her for several years but she stop at 3 or 4 weeks before the present admission. The patient came from [place] to [place] to visit her relatives without announcing it. Apparently, it has a behavior that has been seen before whenever she is manic. We gather collateral information and several family meetings were started. Initially, we started Risperdal titrated to 1 mg p.o. q.h.s. with for resolution of psychosis and melissa. There were no safety concerns there were no evidence of side effects or EPS. Since the patient was safe for discharge, discharge planning was discussed. Her knees stated that she will pick her up number her back home and eventually help her to move back to [place]. She will receive 1 month supply of medications on paper scripts. Time spent discussing smoking cessation with patient: 3 to 10 minutes Status at Discharge Cognitive/behavioral status at discharge: The patient scored 18/30 on the [place] test Functional status at discharge: independent ambulation Overall status at discharge: patient is back to baseline Time Spent with Patient Time attestation: Total time spent providing and/or coordinating discharge services: Time spent: Less than 30 minutes Discharge Plan Discharge Patient Disposition: Home, Self-Care Discharge Diagnosis: bipolar disorder Referrals: [facility] [Other] - 2 Weeks (Intake packet completed by social media designer and patient and sent as [facility] to [facility] in [place], [place]. Calls made with request for appointment. [facility] social media designer to contact you once appointment is received. ) [facility] [Other] - 1 Week (Call was placed and request for appointment made. Office stated they will contact back on 05/16/22 with appointment date due to PCP being on vacation. [facility] SW to contact you with appointment once office provides. ) Discharge Medications: New clonidine HCl 0.1 mg Tablet 0.1 mg PO TID PRN (Reason: hyperarousal) 30 Days Qty: 90 0RF Protocol: Hold for SBP< HOLD for SBP < : 90 acetaminophen 325 mg Tablet 650 mg PO Q6H PRN (Reason: Headache/Pain Mild Scale (1-3)) 30 Days Qty: 90 0RF albuterol sulfate [Ventolin HFA] 90 mcg/actuation Hfa Aerosol Inhaler 2 puff inhalation Q4H PRN (Reason: asthma) 30 Days Qty: 1 0RF risperidone 1 mg Tablet 1 mg PO BEDTIME 30 Days Qty: 30 0RF No Action No Known Home Meds Discharge Orders: Discharge Order (Routine); Ordered 05/13/22 Ordered By: Hoang Scott Diet: Advance to usual diet Activity on Discharge: As tolerated Stand Alone Forms: Patient Portal Discharge page Print Language: French Care Plan Goals: continue treatment as an outpatient Health Concerns: continue treatment by primary care physician Plan of Treatment: continue medication management and psychiatric treatment as an outpatient Assessment: elderly female with a long history of bipolar disorder who was admitted for an episode of melissa and psychosis in the context of noncompliance of his treatment. Currently safe in the community
[2022-05-12 20:05] VITALS: BP 161/76; PULSE 55; RESP 16; TEMP 35.6; O2SAT 93
[2022-05-12] MEDS: risperiDONE 1 MG TABLET PO (20:20)
[2022-05-13] MEDS: Acetaminophen 325 MG TABLET 650 MG PO (01:47)
[2022-05-13 07:30] VITALS: BP 132/78; PULSE 68; RESP 16; TEMP 36.8; O2SAT 92
--- NOTE | 2022-05-13 11:51 | PC.NURSE ---
Patient alert and oriented. Presents as pleasant and cooperative. Interacting appropriately during discharge process. Verbalized understanding of all follow up instructions. Prescriptions given to patient. Maojr retrieved from security. All personal belongins accounted for. Patient escorted to front of hospital by TW and family member. Follow up appointment with PCP and other providers scheduled.
== END 2022-05-13 11:45 | disposition home or self-care (01) | DRG 885 ==
LOC: HO.ED 05-05 16:22 → HO.PM5 05-05 17:36 → HO.PGERI 05-08 13:16
PROVIDERS: Emergency Medicine; Physician Assistant Medical; Psychiatry & Neurology Psychiatry; Admitting Provider Psychiatry & Neurology Psychiatry; Emergency Provider Student in an Organized Health Care Education/Training Program; Visit Provider Clinical Nurse Specialist Psychiatric/Mental Health, Adult
DX: F31.9 Bipolar disorder, unspecified (principal); F17.210 Nicotine dependence, cigarettes, uncomplicated; Z71.6 Tobacco abuse counseling; Z88.2 Allergy status to sulfonamides; Z79.899 Other long term (current) drug therapy
CPT/HCPCS: 36415; 70450; 80048; 80053; 80061; 80307; 81003; 82077; 82607; 82746; 83735; 84443; 85025; 87635; 93005; 96360; 99285